=== PATIENT | female | born 1965 | race Caucasian/White ===

== ENCOUNTER → 2023-09-07 12:59 | Outpatient (REF) | payer OTHER, SELFPAY | LOC: HWRAD 12:59 | PROVIDERS: ATTENDING PHYSICIAN Otolaryngology; FAMILY PHYSICIAN Family Medicine | DX: J32.4 Chronic pansinusitis (principal) | CPT/HCPCS: 70486 ==

== ENCOUNTER → 2023-10-06 09:15 | Outpatient (REF) | payer OTHER, SELFPAY | LOC: RAD 09:15 | PROVIDERS: ATTENDING PHYSICIAN Orthopaedic Surgery Orthopaedic Surgery of the Spine; FAMILY PHYSICIAN Family Medicine | DX: M48.062 Spinal stenosis, lumbar region with neurogenic claudication (principal) | CPT/HCPCS: 72131 ==

== ENCOUNTER → 2023-11-26 15:40 | Outpatient (REF) | payer OTHER, SELFPAY | LOC: RAD 15:40 | PROVIDERS: ATTENDING PHYSICIAN Registered Nurse Neuroscience; FAMILY PHYSICIAN Family Medicine | DX: M48.061 Spinal stenosis, lumbar region without neurogenic claudication (principal) | CPT/HCPCS: 72100 ==

== ENCOUNTER 2024-02-27 18:50 | Outpatient (RCR) | payer OTHER, SELFPAY | END 2024-02-27 23:59 | disposition home or self-care (01) | LOC: RPT 18:50 | PROVIDERS: ATTENDING PHYSICIAN Physician Assistant Medical; FAMILY PHYSICIAN Family Medicine | DX: M54.16 Radiculopathy, lumbar region (principal) | CPT/HCPCS: 97110; 97112; 97162 ==

== ENCOUNTER 2024-03-26 19:05 | Outpatient (RCR) | payer OTHER, SELFPAY | END 2024-03-26 23:59 | disposition home or self-care (01) | LOC: RPT 19:05 | PROVIDERS: ATTENDING PHYSICIAN Physician Assistant Medical; FAMILY PHYSICIAN Family Medicine | DX: M54.16 Radiculopathy, lumbar region (principal); Z73.6 Limitation of activities due to disability | CPT/HCPCS: 97010; 97110; 97112 ==

== ENCOUNTER 2024-04-28 19:01 | Outpatient (RCR) | payer OTHER, SELFPAY | END 2024-04-28 23:59 | disposition home or self-care (01) | LOC: RPT 19:01 | PROVIDERS: ATTENDING PHYSICIAN Physician Assistant Medical; FAMILY PHYSICIAN Family Medicine | DX: Z47.89 Encounter for other orthopedic aftercare (principal); M54.16 Radiculopathy, lumbar region; Z73.6 Limitation of activities due to disability; Z98.1 Arthrodesis status | CPT/HCPCS: 97110; 97112; 97140 ==

== ENCOUNTER → 2024-05-26 17:46 | Outpatient (REF) | payer OTHER, SELFPAY | LOC: RAD 17:46 | PROVIDERS: ATTENDING PHYSICIAN Family Medicine; REFERRING PHYSICIAN Family Medicine | DX: R07.89 Other chest pain (principal); M54.9 Dorsalgia, unspecified | CPT/HCPCS: 71046; 72072 ==

== ENCOUNTER → 2024-09-27 10:03 | Outpatient (REF) | payer OTHER, SELFPAY | LOC: WDC 10:03 | PROVIDERS: ATTENDING PHYSICIAN Family Medicine | DX: Z12.31 Encounter for screening mammogram for malignant neoplasm of breast (principal) | CPT/HCPCS: 77063; 77067 ==

== ENCOUNTER 2024-09-29 13:12 | Emergency (ER) | payer OTHER, SELFPAY ==
[2024-09-29 13:25] VITALS: BP 131/91
[2024-09-29 13:46] LABS: % Basophils 0.4 % (0-2); % Eosinophils 1.2 % (0-6); % Immature Granulocytes 0.3 % (0-0.5); % Lymphocytes 11.8 % (20.5-51.1); % Neutrophils 82.3 % (42.2-75.2); Absolute Eosinophils 0.1 10^3/uL (0-0.7); Absolute Lymphocytes 1.2 10^3/uL (1.2-3.4); Absolute Monocytes 0.4 10^3/uL (0.1-0.6); Absolute Neutrophils 8.6 10^3/uL (1.4-6.5); Hematocrit 39.6 % (37.0-47.0); Hemoglobin 13.3 g/dL (12.0-16.0); Mean Corp Hgb Conc. 33.6 g/dL (33.0-37.0); Mean Corpuscular Hgb 29.1 pg (27.0-31.0); Mean Corpuscular Volume 86.7 fL (81.0-99.0); Nucleated Red Blood Cells % 0 %; Platelet Count 248 10^3/uL (130-400); Red Blood Cell Count 4.57 10^6/uL (4.20-5.40); Red Cell Dist. Width 13.3 % (11.5-14.5); White Blood Cell Count 10.4 10^3/uL (4.8-10.8)
[2024-09-29 14:17] LABS: ALT (SGPT) 23 U/L (0-35); AST (SGOT) 21 U/L (14-36); Albumin 4.6 g/dl (3.5-5.0); Alkaline Phosphatase 89 U/L (38-126); Blood Urea Nitrogen 11 mg/dl (7-17); Calcium 9.5 mg/dl (8.4-10.2); Carbon Dioxide 26 mmol/L (22-30); Chloride 100 mmol/L (98-107); Glucose 110 mg/dl (70-99); Potassium 4.1 mmol/L (3.5-5.1); Sodium 136 mmol/L (135-145); Total Bilirubin 0.6 mg/dl (0.2-1.3); Total Protein 6.5 g/dl (6.3-8.2); eGFR > 60.00
[2024-09-29 16:00] VITALS: BP 136/81
--- NOTE | 2024-09-29 16:05 | ED.GENMED ---
History of Present Illness
<Aaron Celeste DO - Last Filed: 09/29/24 19:54>
General
Chief Complaint: Headache
Source: patient
Time Seen by Provider: 09/29/24 16:05
History of Present Illness
History of Present Illness:
59-year-old female presents to the emergency room complaining of malaise, headache, nasal congestion and clear discharge and feeling generally poor out of it. Symptoms began yesterday. No improvement with a dose of her migraine medicine. Patient
denies having a temperature greater than 100.4. Patient had hyponatremia in the past and is concerned that she could have hyponatremia again because she was drinking extra fluid. Patient denies any focal weakness numbness or tingling.
Past History
<GREGORY Montero - Last Filed: >
Past History
ED Past Medical History: GERD, Hypercholesterolemia, Other (Low immune system) and Other (Migraines)
ED Past Surgical History: Gynecological
Social History
Tobacco: Non-smoker
Alcohol: None
Drug: None
Personal: Single
Living: with family
Employment: Employed
Phy Exam
<Aaron Celeste DO - Last Filed: 09/29/24 19:54>
Physical Exam
Physical Exam:
General: Awake, Alert, Oriented X3. No acute distress.
Vitals: unremarkable
Head: Atraumatic
Eyes: Pupils equal, EOMI
Throat: Airway intact, no exudates
Neck: Trachea midline
Lungs: Clear and equal b/l
Heart: Regular rate, no murmurs
Abd: Soft, Nontender, No pulsatile mass
Neuro: Cranial nerves intact, muscle strength equal bilaterally, cerebellar exam normal
Skin: Warm, dry, no rash
Extremities: pulses equal b/l, no edema
Course
<Aaron Celeste DO - Last Filed: 09/29/24 19:54>
Orders/Labs/Results
Orders:
Orders
09/29/24 13:[address] [CT Head W/o Iv Contrast] Urgent
Comment:
Reason For Exam: YANG
09/29/24 13:37
CBC/With Diff [Complete Blood Count/With Diff] Urgent
Comprehensive Metabolic Panel Urgent
09/29/24 16:22
Ibuprofen [Motrin] 400 mg PO NOW STA
09/29/24 16:30
COVID-19 Antigen Urgent
Source: Nasal Swab
Influenza A+B Rapid Molecular Urgent
JONI Source: Nasal Swab
Specimen Description:
09/29/24 18:34
Acetaminophen [Tylenol] 1,000 mg PO NOW STA
Abnormal Lab Results
09/29/24
13:37
Absolute Neuts (auto) 8.6 H 10^3/uL
(1.4-6.5)
Neutrophils % 82.3 H %
(42.2-75.2)
Lymphocytes % 11.8 L %
(20.5-51.1)
Glucose 110 H mg/dl
(70-99)
09/29/24 13:37
09/29/24 13:37
Vital Signs
Initial and Last Documented VS:
Initial Vital Signs
Temp Pulse Resp BP Pulse Ox
98.4 F 84 16 131/91 98
09/29/24 13:25 09/29/24 13:25 09/29/24 13:25 09/29/24 13:25 09/29/24 13:25
Last Documented Vital Signs
Temp Pulse Resp BP Pulse Ox
98.3 F 72 18 120/74 99
09/29/24 16:00 09/29/24 18:55 09/29/24 18:55 09/29/24 18:55 09/29/24 18:55
<GREGORY Montero - Last Filed: >
Orders/Labs/Results
Orders:
Orders
09/29/24 13:[address] [CT Head W/o Iv Contrast] Urgent
Comment:
Reason For Exam: YANG
09/29/24 13:37
CBC/With Diff [Complete Blood Count/With Diff] Urgent
Comprehensive Metabolic Panel Urgent
09/29/24 16:22
Ibuprofen [Motrin] 400 mg PO NOW STA
09/29/24 16:30
COVID-19 Antigen Urgent
Source: Nasal Swab
Influenza A+B Rapid Molecular Urgent
JONI Source: Nasal Swab
Specimen Description:
09/29/24 18:34
Acetaminophen [Tylenol] 1,000 mg PO NOW STA
Abnormal Lab Results
09/29/24
13:37
Absolute Neuts (auto) 8.6 H 10^3/uL
(1.4-6.5)
Neutrophils % 82.3 H %
(42.2-75.2)
Lymphocytes % 11.8 L %
(20.5-51.1)
Glucose 110 H mg/dl
(70-99)
09/29/24 13:37
09/29/24 13:37
Vital Signs
Initial and Last Documented VS:
Initial Vital Signs
Temp Pulse Resp BP Pulse Ox
98.4 F 84 16 131/91 98
09/29/24 13:25 09/29/24 13:25 09/29/24 13:25 09/29/24 13:25 09/29/24 13:25
Last Documented Vital Signs
Temp Pulse Resp BP Pulse Ox
98.3 F 72 18 120/74 99
09/29/24 16:00 09/29/24 18:55 09/29/24 18:55 09/29/24 18:55 09/29/24 18:55
<Aaron Celeste DO - Last Filed: 09/29/24 19:54>
MDM/Problems Addressed
Differential Diagnosis Includes:
COVID, influenza, other viral illness, migraine
MDM/Problems Addressed:
Patient presents with a headache. Her work appears unremarkable. COVID and flu are negative. Patient has labs which are reassuring. She feels somewhat better after ibuprofen. There is no evidence for an unstable process. Patient stable for
discharge home follow-up with primary care provider. Suspect the source of her headache is combination of tension headache and/or viral illness.
<Aaron Celeste DO - Last Filed: 09/29/24 19:54>
*Radiology
Radiology exam reviewed: radiology read reviewed
*Pulse Oximetry
Patient hypoxic: no
*EKG
Interpretation: normal
Rate: normal
Rhythm: sinus
[place]: normal axis
Interval: normal interval
QRS Pattern: normal QRS
Ischemia: no ischemia
*Back Tufter Interpretation
Rate: normal
Interpretation: normal
Rhythm: sinus
*Critical Care Note
Total Time (30-74mins, 75-104mins- exclusive of procedures): Not Applicable
ED Attending Note
<GREGORY Montero - Last Filed: >
-
Portions of this chart may have been created with voice recognition software.� Occasional wrong word or��sound alike� substitutions may have occurred due to the inherent limitations of voice recognition software.
Discharge Plan
Departure
Patient Disposition: Home (Routine Discharge)
Date of Disposition: 09/29/24
Time of Disposition: 18:35
Patient with high blood pressure during this ER visit?: Yes
Condition: Good
Discharge Problem:
Headache, Acute viral syndrome
Instructions: Headache, Adult (DC), Upper Respiratory Infection ED, BLOOD PRESSURE
Prescriptions:
No Action
fluticasone propionate 1 SPRAY spray,suspension
2 spray intranasal DAILY
ascorbic acid (vitamin C) [Vitamin C] 1,000 MG tablet
1,000 mg PO DAILY
lorazepam 1 mg Tablet
1 mg PO HS
lorazepam 1 mg Tablet
0.5 mg PO DAILYPRN PRN (Reason: anxiety)
diphenhydramine-acetaminophen [Tylenol PM Extra Strength] 25-500 mg Tablet
1 tab PO HS
eletriptan 40 mg Tablet
40 mg PO DAILYPRN PRN (Reason: migraine)
Referrals:
Fermin Mendez Jr., DO [Family Provider] -
Interventions
Interventions:
*Risk Screen - Suicide Last Done: 09/29/24 13:25
*General Assessment Last Done: 09/29/24 16:10
*Neglect/Abuse Screening Last Done: 09/29/24 13:25
ED- Fall Risk Assessment Last Done: 09/29/24 16:10
*Nursing Disposition Last Done: 09/29/24 18:56
ED- Neurological Assessment Last Done: 09/29/24 16:10
Discharge Date and Time
Discharge Date/Time: 09/29/24 18:58
Print Language: TELUGU
[2024-09-29] MEDS: MOTRIN 400 MG PO (16:32)
[2024-09-29 17:35] LABS: COVID-19 Antigen Negative (Negative)
[2024-09-29] MEDS: TYLENOL 1000 MG PO (18:45)
[2024-09-29 18:55] VITALS: BP 120/74
== END 2024-09-29 18:58 | disposition home or self-care (01) ==
LOC: EMR 13:12
PROVIDERS: Emergency Medicine; EMERGENCY PHYSICIAN Emergency Medicine; FAMILY PHYSICIAN Family Medicine
DX: B34.9 Viral infection, unspecified (principal); R51.9 Headache, unspecified; R03.0 Elevated blood-pressure reading, without diagnosis of hypertension; Z11.52 Encounter for screening for COVID-19
CPT/HCPCS: 99284; 70450; 80053; 85025; 87502; 87811

== ENCOUNTER → 2025-04-11 10:13 | Outpatient (REF) | payer OTHER, SELFPAY | LOC: MRI 10:13 | PROVIDERS: ATTENDING PHYSICIAN Physician Assistant Medical; FAMILY PHYSICIAN Family Medicine | DX: M54.16 Radiculopathy, lumbar region (principal) | CPT/HCPCS: 72148 ==

== ENCOUNTER → 2025-04-13 18:49 | Outpatient (REF) | payer OTHER, SELFPAY | LOC: RAD 18:49 | PROVIDERS: ATTENDING PHYSICIAN Physician Assistant Medical; FAMILY PHYSICIAN Family Medicine | DX: M54.16 Radiculopathy, lumbar region (principal) | CPT/HCPCS: 72110 ==